=== PATIENT | female | born 1985 | race Caucasian/White ===

== ENCOUNTER 2016-09-14 18:52 | Emergency (ER) | payer SELFPAY | END 2016-09-14 22:50 | disposition home or self-care (01) | LOC: D.ER 18:52 | DX: L02.511 Cutaneous abscess of right hand (principal); L03.113 Cellulitis of right upper limb ==

== ENCOUNTER 2016-09-16 12:43 | Emergency (ER) | payer SELFPAY ==
[2016-09-16 15:24] LABS: BASOPHILS 0.7 % (0-2); EOSINOPHILS 5.4 % (0-7); HEMATOCRIT 35.4 % (36.0-48.0); HEMOGLOBIN 10.6 g/dL (12-16); IMMATURE GRANULOCYTES 0.1 % (0-5); LYMPHOCYTES 26.1 % (15-50); MCH 26.4 pg (26.0-34.0); MCHC 29.9 g/dL (31.0-37.0); MCV 88.3 fL (80.0-100.0); MEAN PLATELET VOLUME 10.2 fL (7.4-10.4); MONOCYTES 9.3 % (2-11); NEUTROPHILS 58.4 % (40-80); PLATELET COUNT 298 10x3/uL (130-400); RBC 4.01 10x6/uL (4.00-5.40); RDW 19.4 % (11.5-14.5); WBC 7.4 10x3/uL (4.8-10.8)
[2016-09-16 15:49] LABS: ALBUMIN 3.1 g/dL (3.4-5.0); ALKALINE PHOSPHATASE 68 U/L (46-116); ALT (SGPT) 41 U/L (10-68); BILIRUBIN - TOTAL 0.31 mg/dL (0.2-1.3); CALC OSMOLALITY 276 mosm/kg (275-300); CALCIUM 8.4 mg/dL (8.5-10.1); CARBON DIOXIDE 22.9 mmol/L (21.0-32.0); CHLORIDE - SERUM 107 mmol/L (98-107); CREATININE - SERUM 0.6 mg/dL (0.6-1.3); GLUCOSE 88 mg/dL (74-106); POTASSIUM - SERUM 4.5 mmol/L (3.5-5.1); PROTEIN - SERUM 6.3 g/dL (6.4-8.2); SODIUM 140 mmol/L (136-145); UREA NITROGEN 9 mg/dL (7-18); eGFR NON AFRICAN AMERICAN > 90 mL/min (90-120)
== END 2016-09-16 16:22 | disposition home or self-care (01) ==
LOC: D.ER 12:43
PROVIDERS: Nurse Practitioner Family
DX: L03.113 Cellulitis of right upper limb (principal)

== ENCOUNTER 2018-11-10 01:06 | Inpatient (IN) | payer MEDICAID ==
[~2018-11-10] VITALS: Ht 162.6 cm; Wt 86.2 kg
[2018-11-10] VITALS (10 sets, daily range): BP systolic 107–125; BP diastolic 59–75; Ht 162.6 cm; Wt 86.2 kg
[2018-11-10 03:03] LABS: BASOPHILS 0.1 % (0-2); EOSINOPHILS 2.3 % (0-7); HEMATOCRIT 29.6 % (36.0-48.0); HEMOGLOBIN 9.2 g/dL (12-16); IMMATURE GRANULOCYTES 0.4 % (0-5); LYMPHOCYTES 25.6 % (15-50); MCH 22.2 pg (26.0-34.0); MCHC 31.1 g/dL (31.0-37.0); MCV 71.3 fL (80.0-100.0); MEAN PLATELET VOLUME 9.2 fL (7.4-10.4); MONOCYTES 10.6 % (2-11); PLATELET COUNT 297 10x3/uL (130-400); RBC 4.15 10x6/uL (4.00-5.40); RDW 17.1 % (11.5-14.5); WBC 9.4 10x3/uL (4.8-10.8)
[2018-11-10 03:04] LABS: APPEARANCE CLEAR (CLEAR); BILIRUBIN NEGATIVE (NEGATIVE); COLOR YELLOW (YELLOW); GLUCOSE NEGATIVE (NEGATIVE); KETONE NEGATIVE (NEGATIVE); NITRITE NEGATIVE (NEGATIVE); PROTEIN NEGATIVE (NEGATIVE); SPECIFIC GRAVITY 1.015 (1.005-1.020); UROBILINOGEN NORMAL (NORMAL)
--- NOTE | 2018-11-10 05:07 | NUR ---
BABY BOY AT 0506
--- NOTE | 2018-11-10 07:10 | NUR ---
THIS RN TO ROOM FOR SHIFT ASSESSMENT. PT NOTED TO BE BUT REQUESTS BOTTLE. NURSERY NOTIFIED. PT ALSO REQUESTS SPRITE, DENIES NAUSEA. WILL RETURN.
--- NOTE | 2018-11-10 07:15 | NUR ---
THIS RN TO ROOM WITH SPRITE. NURSERY RN TO ROOM WITH BOTTLE FOR INFANT. SHIFT ASSESSMENT COMPLETED, VSS, SEE FLOWSHEET FOR DOC. PT RATING PAIN 10/10, REQUESTING PAIN MEDICATION. WILL CHECK EMAR AND ADMIN ORDERED. FF, ML, U/1. MODERATE RUBRA LOCHIA, NO CLOTS. PERIPAD CHANGED. FERRARA CATH DRAINING CLEAR YELLOW URINE, TUBING SECURED VIA STAT LOCK TO PT'S INNER THIGH. 350ML URINE EMPTIED FROM UROMETER. NEG HOMANS SIGN. PEDAL PULSES 2+ BILAT. SRUx2, CL IN REACH. WILL RETURN.
--- NOTE | 2018-11-10 08:04 | NUR ---
PT TRANSFERRED TO ROOM 1274 VIA BED. IV INFUSING ORDERED, WILL SET UP SCAFFOLD WORKER ORDERED. SCD'S ON LE BILAT AND ON PUMP. FF, ML, U/1. SMALL RUBRA LOCHIA NOTED TO PERIPAD, NO CLOTS. 380ML CLEAR YELLOW URINE EMPTIED FROM UROMETER, FERRARA DRAINING WELL. VSS, SEE FLOWSHEET. SRUx2, CL IN REACH. WILL CONT TO MONITOR.
--- NOTE | 2018-11-10 08:07 | NUR ---
DRAPERY INSPECTOR SET UP ORDERED. BOLUS DOSE OF 0.4MG ADMIN ORDERED PRN FOR PT RATING PAIN 10/10. SEE EMAR
--- NOTE | 2018-11-10 08:13 | NUR ---
PT ADMIN TORADOL IVP ORDERED FOR PAIN AND CRAMPING, SEE EMAR FOR DOC.
--- NOTE | 2018-11-10 09:05 | NUR ---
THIS RN TO ROOM FOR PT CHECK. PT SITTING UP IN BED, REPORTS RELIEF FROM PAIN, RATES PAIN 4/10. PT REQUESTING BROTH OR LIQUIDS PER CLEAR LIQUID DIET. 75ML CLEAR YELLOW URINE EMPTIED FROM UROMETER. VSS, SEE FLOWSHEET. WILL PROVIDE REQUESTED. INFANST IN [place] AT BEDSIDE. SRUx2, CL IN REACH.
--- NOTE | 2018-11-10 09:40 | NUR ---
THIS RN TO ROOM TO PROVIDE PT WITH REQUESTED CLEAR LIQUIDS. PT BEDSIDE TABLE SETUP WITH CLEAR LIQUIDS. PHONE AND CALL LIGHT WITHIN REACH. PT DENIES FURTHER NEEDS. INFANT RESTING IN [place] AT BEDSIDE. SRUx2, CL IN REACH. WILL CONT TO MONITOR.
--- NOTE | 2018-11-10 11:18 | NUR ---
THIS RN TO ROOM FOR PT CHECK. VSS, SEE FLOWSHEET. 125ML CLEAR YELLOW URINE EMPTIED FROM UROMETER. PT DENIES NEEDS AT THIS TIME. SRUx2, CL IN REACH. WILL CONT TO MONITOR.
[2018-11-10 12:01] LABS: BASOPHILS 0.2 % (0-2); EOSINOPHILS 1.7 % (0-7); HEMATOCRIT 29.2 % (36.0-48.0); IMMATURE GRANULOCYTES 0.4 % (0-5); LYMPHOCYTES 16.7 % (15-50); MCH 22.5 pg (26.0-34.0); MCHC 30.8 g/dL (31.0-37.0); MEAN PLATELET VOLUME 9.1 fL (7.4-10.4); MONOCYTES 9.3 % (2-11); NEUTROPHILS 71.7 % (40-80); RDW 17.5 % (11.5-14.5); WBC 11.3 10x3/uL (4.8-10.8)
--- NOTE | 2018-11-10 12:05 | NUR ---
THS RN TO ROOM FOR PT CHECK. PT SITTING UP IN BED, VERBALIZES GOOD PAIN CONTROL WITH UNIT OPERATOR. 225ML CLEAR YELLOW URINE EMPTIED FROM UROMETER. FF, ML, U/1. SMALL RUBRA LOCHIA NOTED TO PERIPAD, NO CLOTS. PERICARE DONE, PAD CHANGED. ABD DSG REMAINS C/D/I. ICE PACK PLACED TO INCISION. SURGERY PILLOW PROVIDED. PT INSTRUCTED ON COUGHING AND DEEP BREATHING. PT USES INCENTIVE SPIROMETER FOR DEEP BREATHING x3, COUGHS x3 WITH FAIR EFFORT. JELLO AND FRESH ICE WATER PROVIDED PER REQUEST. PT ALSO REQUESTING BENADRYL FOR ITCHING. WILL RETURN. SRux2, CL IN REACH.
[2018-11-10 12:12] LABS: PLATELET COUNT 235 10x3/uL (130-400)
--- NOTE | 2018-11-10 12:22 | NUR ---
BENADRYL ADMIN PO ORDERED, SEE EMAR FOR DOC. PT DENIES FURTHER NEEDS AT THIS TIME. WILL CONT TO MONITOR.
--- NOTE | 2018-11-10 14:00 | NUR ---
THIS RN TO ROOM FOR PT CHECK. 210ML YELLOW URINE EMPTIED FROM UROMETER. FERRARA BAG EMPTIED. PT DENIES NEEDS. SRUx2, CL IN REACH. LIGHTS DIMMED FOR REST. WILL CONT TO MONITOR.
--- NOTE | 2018-11-10 15:00 | NUR ---
THIS RN TO ROOM FOR IV BEEPING, BAG VOLUME NOTED AND RESET. 45ML DARK YELLOW URINE EMPTIED FROM UROMETER. PT ENCOURAGE TO DRINK, REQUESTS APPLE JUICE AND ICE. LARGE CUP OF JUICE AND LARGE CUP OF ICE PROVIDED. PT DENIES FURTHER NEEDS. SRUx2, CL IN REACH. WILL CONT TO MONITOR.
--- NOTE | 2018-11-10 16:30 | NUR ---
THIS RN TO ROOM FOR PT CHECK. PT C/O BURNING AT RIGHT CHEST IV SITE. SITE NOTED TO BE RED AND INFILTRATED. IV FLUIDS STOPPED. PT STATES "I REALLY DON'T WANT TO HAVE ANOTHER IV STARTED, IT WAS TERRIBLE GETTING THESE STARTED BECAUSE I'M SUCH A HARD STICK." DR MACEDO PHONED AND REPORT GIVEN, ORDER RCVD TO NORMALIZE PT AND SWITCH TO PO PAIN MEDS. SEE AIRPLANE PILOT HELPER FOR MED DETAILS.
--- NOTE | 2018-11-10 16:45 | NUR ---
PT RIGHT CHEST IV D/C'D PER INFILTRATION. PO MEDS ADMIN ORDERED, SEE EMAR FOR DOC. FERRARA CATH D/C'D. FF, ML, U/1. SMALL RUBRA LOCHIA, NO CLOTS. PAD CHANGED. PT INSTRUCTED TO CALL OUT WHEN SHE FEELS URGE TO VOID AND DO NOT GET OOB WITHOUT RN. UNDERSTANDING VERBALIZED. FANS DELIVERS REGULAR DIET DINNER TRAY. PT ENCOURAGED TO EAT SLOWLY AND REPORT ANY NAUSEA TO THIS RN. UNDERSTANDING VERBALIZED. FAMILY MEMBERS AT BEDSIDE. SRUx2, CL IN REACH.
--- NOTE | 2018-11-10 17:40 | NUR ---
PT SITTING UP IN BED, TALKING WITH NURSERY RN. NO DISTRESS NOTED, FAMILY AT BEDSIDE. WILL CONT TO MONITOR.
--- NOTE | 2018-11-10 20:53 | NUR ---
PATIENT SITTING UP IN BED. PATIENT AMBULATED TO BATHROOM WITH ASSIST. AMBULATED WITH STEADY GAIT. VOIDED 600 CC'S OF YELLOW URINE. FELICIANO CARE DONE. PADS CHANGED. PATIENT AMBULATED BACK TO BED WITH STEADY GAIT. STATES PAIN 12/16. BED IN LOWEST POSITION, SIDE RAILS UP X 2, C/L AND WATER WITHIN REACH.
--- NOTE | 2018-11-10 20:59 | NUR ---
PATIENT STATES PAIN 12/16. NORCO 10/325 ADMINISTERED PO AT THIS TIME. PATIENT DENIES FURTHER NEEDS. BED IN LOWEST POSITIN, SIDE RAILS UP X 2, C/L AND WATER WITHIN REACH.
--- NOTE | 2018-11-10 21:27 | NUR ---
SHIFT ASSESSMENT COMPLETED AT THIS TIME, SEE FLOWSHEET.
[2018-11-11 00:02] VITALS: BP 119/65
--- NOTE | 2018-11-11 00:02 | NUR ---
PATIENT SITTING UP IN BED, VISITORS AT BEDSIDE HOLDING . SPRITE PROVIDED PER PT REQUEST, NO FURTHER NEEDS IDENTIFIED. WILL CONTINUE TO MONITOR.
--- NOTE | 2018-11-11 02:59 | NUR ---
PATIENT RESTING QUIETLY WITH EYES CLOSED, RESPIRATIONS EVEN AND NON LABORED, NO DISTRESS NOTED. WILL CONTINUE TO MONITOR
--- NOTE | 2018-11-11 03:20 | NUR ---
INFANT TO ROOM VIA OPEN CRIB, ID VERIFIED. PATIENT GIVEN APPLE JUICE REQUESTED. DENIES OTHER NEEDS. BED REMAINS LOCKED IN LOW POSITION. SIDE RAILS UPX2, CALL BAILEY AND TRAY TABLE IN REACH. WILL CONTINUE TO MONITOR
--- NOTE | 2018-11-11 03:51 | NUR ---
CALLED TO ROOM BY PATIENT, PT STATES THAT HER BABY SPIT UP ON HIS SHIRT, CLEAN SHIRT PROVIDED, NO FURTHER NEEDS IDENTIFIED.
--- NOTE | 2018-11-11 04:40 | NUR ---
BENADRYL 25MG PO PER PT REQUEST FOR ITCHING.
--- NOTE | 2018-11-11 06:30 | NUR ---
PT LYING IN BED HOLDING INFANT, DENIES NEEDS AT THIS TIME, STATES THAT HER ITCHING IS GONE NOW.
[2018-11-11 07:11] LABS: BASOPHILS 0.1 % (0-2); EOSINOPHILS 2.8 % (0-7); HEMATOCRIT 28.2 % (36.0-48.0); HEMOGLOBIN 8.6 g/dL (12-16); IMMATURE GRANULOCYTES 0.4 % (0-5); LYMPHOCYTES 24.9 % (15-50); MCH 22.2 pg (26.0-34.0); MCHC 30.5 g/dL (31.0-37.0); MCV 72.9 fL (80.0-100.0); MEAN PLATELET VOLUME 9.3 fL (7.4-10.4); MONOCYTES 10.7 % (2-11); NEUTROPHILS 61.1 % (40-80); PLATELET COUNT 251 10x3/uL (130-400); RBC 3.87 10x6/uL (4.00-5.40); RDW 17.7 % (11.5-14.5)
[2018-11-11 08:11] LABS: RAPID PLASMA REAGIN Non Reactive (Non Reactive)
--- NOTE | 2018-11-11 08:15 | NUR ---
AM ASSESSMENT COMPLETED. PT CONTINUE TO RATE PAIN AT 9/10 MOTRIN GIVEN PER REQUEST. FUNDUS FIRM AT U/U WITH LIGHT BLEEDING NOTED. PT IS UP AND WALKING AROUND ROOM. SHE ASK IF INFANT COULD BE TAKEN TO NURSEY SINCE SHE IS ALONE AND WISHES TO TRY AND SLEEP. PT STATES UNDERSTANDING THAT UNLESS SHE CALLS FOR NURSE SHE WILL BE LEFT UNDISTRUBED SO THAT SHE CAN REST. SIDE RAILS UP X 2, INFANT TO NBN VIA CRIB.
--- NOTE | 2018-11-11 10:30 | NUR ---
PT CALLS OUT, THIS RN TO BEDSIDE. PT IS CONCERNED THAT SHE JUST WOKE UP AND HAS LEFT INFANT IN NURSERY, REASSURED HER THAT SHE HAD NOT DONE ANYTHING WRONG. NURSERY NURSE NOTIFIED AND BROUGHT TO ROOM BY CRIB.
--- NOTE | 2018-11-11 13:00 | NUR ---
PT CALLS OUT REQUESTING PAIN MED. SHE RATES AT 6/10 AT INCISION SITE. LARGE CUP OF ICE ALSO PROVIDED AT THIS TIME. IN CRIB AT BEDSIDE. SIDE RAILS UP X 2 WITH CALL LIGHT IN REACH.
--- NOTE | 2018-11-11 13:45 | NUR ---
RATES PAIN AT 2/10 AND DENIES NEEDS.
--- NOTE | 2018-11-11 15:00 | NUR ---
ROUNDS MADE, PT SITTING UP IN BED BONDING WITH INFANT. RATES PAIN AT 2/10 AND DENIES NEEDS.
--- NOTE | 2018-11-11 17:30 | NUR ---
PAIN MED GIVEN REQUESTED, RATES PAIN AT 6-7/10. BEING HELD/FEED BY FAMILY MEMBER. NO OTHER NEEDS AT THIS TIME. CALL LIGHT IN REACH.
--- NOTE | 2018-11-11 18:26 | NUR ---
PAIN REASSESSMENT, SHE RATES AT 2/10 AT THIS TIME. SHOWER SUPPLIES AND CLEAN GOWN PROVIDED AND PT TO NOTIFY NURSE WHEN SHE GETS IN TO THE SHOWER SO THAT BED LINENS CAN BE CHANGED. PT VERIFIES THAT IT IS OK FOR HER TO AMBULATE IN HALLS WITH IN CRIB.
[2018-11-11 19:13] VITALS: BP 114/72
--- NOTE | 2018-11-11 19:13 | NUR ---
SHIFT ASSESSMENT COMPLETED, SEE FLOWSHEET.
--- NOTE | 2018-11-11 21:34 | NUR ---
PT LYING IN BED HOLDING INFANT. ADMINISTERED BENADRYL AND NORCO PER PT REQUEST AND MD ORDERS, SEE EMAR. NO FURTHER NEEDS IDENTIFIED. WILL CONTINUE TO MONITOR
--- NOTE | 2018-11-11 22:58 | NUR ---
CALLED TO ROOM BY PATIENT, STATES THAT THE NIPPLES ARE POPPING OFF OF THE BOTTLES, THAT THEY WONT STAY ON WHILE SHE IS TRYING TO FEED THE BABY. THIS RN TRIED ANOTHER BOTTLE WITH THE SAME PROBLEM. CHE PROVIDED NEW NIPPLES AND A NEW BOTTLE AND THAT SEEMED TO WORK. PT ENCOURAGED TO CALL WITH ANY FURTHER NEEDS.
--- NOTE | 2018-11-11 23:40 | NUR ---
PATIENT LYING IN BED HOLDING AND FEEDING HIM A BOTTLE, STATES THAT HE DIDNT WANT TO FEED BEFORE SO SHE WAITED UNTIL HE WOKE UP TO TRY AGAIN. PT PROVIDED WITH ICE PER REQUEST. NO FURTHER NEEDS IDENTIFIED. WILL CONTINUE TO MONITOR.
--- NOTE | 2018-11-12 01:40 | NUR ---
PATIENT SITTING UP IN BED BURPING . NO NEEDS IDENTIFIED AT THIS TIME, PT ENCOURAGED TO CALL WITH ANY NEEDS. BED REMAINS LOCKED IN LOW POSITION, SIDE RAILS UPX2, CALL BAILEY AND TRAY TABLE IN REACH. WILL CONTINUE TO MONITOR.
--- NOTE | 2018-11-12 02:16 | NUR ---
NORCO ADMINISTERED PER PT REQUEST, SEE EMAR.
--- NOTE | 2018-11-12 02:30 | NUR ---
PATIENT RESTING QUIETLY, BROUGHT TO NURSERY PER PT REQUEST SO SHE CAN REST.
--- NOTE | 2018-11-12 06:25 | NUR ---
PT LYING IN BED HOLDING INFANT, ADMINISTERED NORCO 10/325MG PO PER MD ORDERS AND PT REQUEST, SEE EMAR.
--- NOTE | 2018-11-12 11:00 | NUR ---
PT CALLS OUT REQUESTING PAIN MED. RATES PAIN AND CRAMPING AT 6/10 MEDS GIVEN CHARTED/SCANNED TO EMAR. PT DENIES ANY OTHER NEEDS AT THIS TIME.
--- NOTE | 2018-11-12 12:01 | NUR ---
PT AWAKE AND SITTING UP IN BED, RATES PAIN AT 0/10 AT THIS TIME. FUNDUS FIRM WITH SCANT BLEEDING NOTED. INCISION IS CLEAN AND DRY. ASSESSMENT CHARTED ON FLOWSHEET. LARGE CUP OF ICE PER REQUEST. CALL LIGHT IN REACH WITH SIDE RAILS UP X 2.
[2018-11-12] MEDS ORDERED: IBUPROFEN600 MG PO (12:40)
[2018-11-12] MEDS ORDERED: HYDROCODON-ACE1 EA10 PO (12:40)
--- NOTE | 2018-11-12 13:42 | NUR ---
LARGE CUP OF ICE PER REQUEST. PT DRESSED AND WAITING FOR INFANT DISCHARGE. DENIES PAIN AT THIS TIME.
--- NOTE | 2018-11-12 15:00 | NUR ---
VERBAL AND WRITTEN DISCHARGE INSTRUCTIONS GONE OVER WITH NO QUESTIONS OR CONCERNS. PROVIDED WITH WRITTEN SCRIPT FOR NORCO 10/325MG AND MOTRIN 600MG. PT DENIES PAIN AT THIS TIME. NURSERY NOTIFIED TO VERIFY INFANT SECURED IN TO CARRRIER.
--- NOTE | 2018-11-12 15:15 | NUR ---
TAKEN OUT BY WHEELCHAIR, HOME WITH FAMLIY BY PRIVATE CAR.
--- NOTE | 2018-11-22 13:27 | OP ---
PATIENT NAME: DELMY TRACY MEDICAL RECORD: [id number] :84 LOCATION:[id number] ADMISSION DATE:11/10/18 SURGEON: ABEL CR MD DATE OF OPERATION: 11/10/2018 PREOPERATIVE DIAGNOSES: 1. Term intrauterine . 2. Uterine contractions. 3. History of previous section. PROCEDURE: Repeat low transverse section. SURGEON: Abel Cr MD ANESTHESIA: Regional via spinal. INTRAVENOUS FLUIDS: Per anesthesia record. ESTIMATED BLOOD LOSS: 1000 cc. FINDINGS: 1. Uterine window from early dehiscence and anterior lower uterine segment. 2. Viable male infant, Apgars 9 at 1 and 9 at 5. 3. Normal adnexa bilaterally. 4. Placenta delivered manually intact, 3-vessel cord noted. SPECIMENS: Placenta and cord for gases. COMPLICATIONS: None apparent. DESCRIPTION OF PROCEDURE: The patient taken to the operating room where regional anesthesia was achieved without difficulty via spinal. At this point, the patient was prepped and draped in normal sterile fashion in a dorsal supine position. SCDs were on and functioning normally. A Rossi catheter had been placed and was draining freely. At this point, a Pfannenstiel skin incision was made, extended down to the underlying subcutaneous fat to level of the fascia. The fascia was then excised in the midline and extended bilaterally using the Hodge scissors. The superior and inferior aspect of the fascial incision were then tented upward with Gabby clamps and sharply dissected from the underlying rectus muscle using the Hodge scissors and the Bovie cautery. The rectus muscles were then bluntly in the midline and the peritoneum entered sharply at the superior aspect of the incision. Peritoneal incision was then extended bilaterally using the Metzenbaum scissors and bladder flap was created by excising the anterior leaf of the broad ligament across the lower uterine segment using the Metzenbaum scissors. A bladder blade was placed into the pelvis and a low transverse incision was made in the uterus. This was then extended via the Pelosi method. The head and then body were delivered atraumatically. was bulb suctioned upon delivery. Cord was clamped times 2 and cut and the was handed to the awaiting nursery team. At this point, cord was obtained for gases. The placenta was removed manually intact. The uterus was then exteriorized and vigorously massaged until good uterine tone was noted. Uterus was also cleared of all clots and debris using a lap sponge. After good uterine tone was noted, the uterine incision was repaired with 0 Vicryl in a running locked fashion times 2 and good hemostasis was noted. The posterior cul-de-sac was then thoroughly irrigated and uterus was replaced into OPERATIVE REPORT [id number] DELMY TRACY the pelvis. The anterior cul-de-sac was irrigated and the uterine incision again found to be hemostatic. Counts were correct times 2 for sponges, needles, and instruments. The fascia was repaired with 0 loop PDS times 1 and the skin repaired with kristy. The patient tolerated procedure well, transferred to postanesthesia recovery stable without incident. TRANSINT:[id number] Voice Confirmation ID: [id number] DOCUMENT ID: [id number] ABEL CR MD at 1327 CC: [id number] DICTATION DATE: 11/19/18 1112 MANAGER OF OPERATIONS: 11/19/18 1214 DIS IN 11/12/18 [facility] [address] [place] [address]
== END 2018-11-12 15:15 | disposition home or self-care (01) | DRG 788 ==
LOC: D.LDO 01:06 → D.LD 03:35
PROVIDERS: ADMIT Obstetrics & Gynecology; ATTEND Obstetrics & Gynecology
PROC: 10D00Z1 Extraction of Products of Conception, Low, Open Approach (ICD-10-PCS; principal; 2018-11-10 04:01)
DX: O99.02 Anemia complicating childbirth (principal); D64.9 Anemia, unspecified; Z3A.38 38 weeks gestation of pregnancy; Z37.0 Single live birth; O34.219 Maternal care for unspecified type scar from previous cesarean delivery